=== PATIENT | female | born 1975 | race Caucasian/White ===

== ENCOUNTER 2017-04-12 01:15 | Emergency (ER) | payer SELFPAY ==
[~2017-04-12] VITALS: Ht 165.1 cm; Wt 74.8 kg
[2017-04-12 01:34] VITALS: BP 109/50
== END 2017-04-12 04:30 | disposition left against medical advice (07) ==
LOC: ER 01:47
DX: S01.81XA Laceration without foreign body of other part of head, initial encounter (principal); Z53.21 Procedure and treatment not carried out due to patient leaving prior to being seen by health care provider; W01.0XXA Fall on same level from slipping, tripping and stumbling without subsequent striking against object, initial encounter; Y93.89 Activity, other specified; Y99.8 Other external cause status; Y92.89 Other specified places as the place of occurrence of the external cause